=== PATIENT | female | born 1990 | race Caucasian/White ===

== ENCOUNTER 2021-11-06 07:29 | Inpatient (IN) | payer SELFPAY ==
[2021-11-06] MEDS ORDERED: LACTATED RINGERS 1,000 ML IV ONE (11:59)
[2021-11-06] MEDS ORDERED: fentaNYL 100 MCG/2 ML INJ IV PRN (12:18)
[2021-11-06] MEDS ORDERED: TERBUTALINE 1 MG/1 ML INJ SUB-Q PRN (12:18)
[2021-11-06] MEDS ORDERED: miSOPROStol 200 MCG TAB PR PRN (12:18)
[2021-11-06] MEDS ORDERED: MINERAL OIL 30 ML ORAL LIQD PO PRN (12:18)
[2021-11-06] MEDS ORDERED: LOPERAMIDE 2 MG CAP PO PRN (12:18)
[2021-11-06] MEDS ORDERED: ACETAMINOPHEN 325 MG TAB PO PRN (12:18)
[2021-11-06] MEDS ORDERED: CARBOPROST TROMETHAMINE 250 MCG/1 ML INJ IM PRN (12:18)
[2021-11-06] MEDS ORDERED: METHYLERGONOVINE MALEATE 0.2 MG/ML VIAL IM PRN (12:18)
[2021-11-06] MEDS ORDERED: BUTORPHANOL 2 MG/1 ML INJ IV PRN ×2 (12:18)
[2021-11-06] MEDS ORDERED: OXYTOCIN 10 UNIT/1 ML INJ IM PRN (12:18)
[2021-11-06] MEDS ORDERED: ePHEDrine SULFATE 50 MG/1 ML INJ IV PRN ×2 (12:18→14:00)
[2021-11-06 12:33] LABS: Hematocrit 37.2 % (30.3-42.9); Mean Corpuscular HGB Conc 32 % (30-34); Mean Corpuscular Volume 88 fl (79-97); Platelet Count 135 K/mm3 (140-440); Red Blood Count 4.25 M/mm3 (3.65-5.03); Red Cell Distribution Width 18.3 % (13.2-15.2)
--- NOTE | 2021-11-06 12:35 | History and Physical Report ---
History of Present Illness Date of examination: 11/06/21 Date of admission: 11/06/2021 Chief complaint: Contractions History of present illness: 30 yo female presented to [facility] @40 4/7weeks with c/o contractions. Denies VB or LOF and admits to + movement. Initiated care at [facility] at 7 6/7 weeks. +UTI early , MELIZA neg. Med/surg/social hx unremarkable. . Family hx of DM(grandmother). GBS negative. Found to be in labor and admit to L&D. Past History Past Medical History: no pertinent history Past Surgical History: no surgical history Family/Genetic History: diabetes (grandmother) - Obstetrical History Expected Date of Delivery: 11/02/21 Actual Gestation: 40 Week(s) 4 Day(s) : 4 Para: 3 Hx # Term Pregnancies: 3 Number of Living Children: 3 Medications and Allergies Allergies Allergy/AdvReac Type Severity Reaction Status Date / Time No Known Allergies Allergy Verified 11/06/21 12:14 Home Medications Medication Instructions Recorded Confirmed Last Taken Type 21/Iron Fu/Folic Acid 1 each PO DAILY 04/19/14 08/18/16 08/16/16 History [ Complete Caplet] Active Meds: Active Medications Lactated Ringer's (Lactated Ringers) 1,000 mls @ 999 mls/hr IV BOLUS ONE Stop: 11/06/21 12:59 Last Admin: 11/06/21 12:15 Dose: 999 mls/hr Review of Systems All systems: negative Gastrointestinal: other (contractions) - Vital Signs Vital signs: Vital Signs Pulse Pulse Ox 89 98 11/06/21 07:53 11/06/21 07:53 Temp Pulse Resp BP Pulse Ox 99.2 F 98 H 16 134/91 97 11/06/21 11:52 11/06/21 12:23 11/06/21 11:52 11/06/21 11:52 11/06/21 12:23 - Physical Exam Breasts: Positive: normal Abdomen: Positive: normal appearance, soft Genitourinary (Female): Positive: normal external genitalia, normal perenium Vulva: both: normal Vagina: Positive: normal moisture Uterus: Positive: enlarged, other (gravid) Anus/Rectum: Positive: normal perianal skin Extremities: Positive: normal - Obstetrical FHR: category 1 Uterine Contraction Monitor Mode: External Cervical Dilatation: 5.5 (per nurse) Cervical Effacement Percentage: 80 station: -2 Uterine Contraction Frequency (min): 2-5 Uterine Contraction Duration: 80-100 Uterine Contraction Pattern: Regular Uterine Tone Measurement Phase: Resting Uterine Contraction Intensity: Moderate Results All other labs normal. Assessment and Plan A: IUP @ 40.4 weeks GBS neg P: Admit to L&D Continuous monitoring Pain med/ Epidural PRN Anticipate
[2021-11-06] MEDS ORDERED: OXYTOCIN DRIP 30 UNITS/500 ML BAG IV SCH (13:00)
--- NOTE | 2021-11-06 13:26 | Anesthesia Consultation ---
Anesthesia Consult and Med Hx Date of service: 11/06/21 - Airway Anesthetic Teeth Evaluation: Good ROM Head & Neck: Adequate Mental/Hyoid Distance: Adequate Mallampati Class: Class III Intubation Access Assessment: Probably Good - Pulmonary Exam CTA: Yes - Cardiac Exam Cardiac Exam: RRR - Pre-Operative Health Status ASA Pre-Surgery Classification: ASA2 Proposed Anesthetic Plan: Epidural - Pulmonary Hx Smoking: No Hx Asthma: No COPD: No Hx Pneumonia: No Hx Sleep Apnea: No - Cardiovascular System Hx Hypertension: No Hx Heart Attack/AMI: No Hx Angina: No - Central Nervous System Hx Seizures: No Hx Psychiatric Problems: No - Gastrointestinal Hx Gastroesophageal Reflux Disease: No - Endocrine Hx Renal Disease: No Hx End Stage Renal Disease: No Hx Liver Disease: No Hx Insulin Dependent Diabetes: No Hx Non-Insulin Dependent Diabetes: No Hx Hypothyroidism: No Hx Hyperthyroidism: No - Hematic Hx Anemia: No Hx Sickle Cell Disease: No - Other Systems Hx Alcohol Use: No Hx Obesity: Yes
--- NOTE | 2021-11-06 13:27 | Progress Note ---
Labor Epidural - Labor Epidural Start Time: 13:09 Stop Time: 13:22 Performed by:: MARY GRADY ([facility]) Procedure: Patient is requesting epidural for labor and pain. H&P, labs were reviewed. Patient IDed, H&P reviewed, all questions and concerns were answered, and consent was signed. Timeout was performed at bedside. Patient in sitting position. Sterile prep and drape was performed. 3ml of 1% lidocaine skin wheal at L[3]- L [4]. 17-gauge Tuohy epidural needle was advanced to loss of resistance with air technique 7cm. Negative CSF negative blood. Epidural catheter advanced to [12] centimeters. [negative] Aspiration [negative] test dose. Sterile dressing applied. Patient tolerated procedure.
[2021-11-06] MEDS ORDERED: fentaNYL-BUPIV 2 MCG/ML-0.125% 200 MCG/100 ML BAG EPIDURAL ONE (13:32)
[2021-11-06] MEDS ORDERED: diphenhydrAMINE 50 MG/ML VIAL IV PRN (14:00)
[2021-11-06] MEDS ORDERED: ONDANSETRON 4 MG/2 ML INJ IV PRN ×2 (14:00→16:19)
[2021-11-06] MEDS ORDERED: NALOXONE 2 MG/2 ML INJ IV PRN (14:00)
[2021-11-06] MEDS ORDERED: LACTATED RINGERS 250 ML IV SOLN IV ONE (14:00)
[2021-11-06] MEDS ORDERED: NalbUPHINE 10 MG/1 ML INJ IV PRN (14:00)
[2021-11-06] MEDS ORDERED: fentaNYL-BUPIV 2 MCG/ML-0.125% 200 MCG/100 ML BAG EPIDURAL SCH (14:00)
[2021-11-06] MEDS ORDERED: LACTATED RINGERS 1,000 ML ONE (15:21)
[2021-11-06] MEDS: OXYTOCIN DRIP 30 UNITS/500 ML BAG IV SCH ×2 (15:58→17:43)
[2021-11-06] MEDS ORDERED: oxyCODONE /ACETAMINOPHEN 5-325MG TAB PO PRN (16:19)
[2021-11-06] MEDS ORDERED: PROMETHAZINE 25 MG RECT SUPP PR PRN (16:19)
[2021-11-06] MEDS ORDERED: MAGNESIUM HYDROXIDE (MOM) ORAL LIQD UDC PO PRN (16:19)
[2021-11-06] MEDS ORDERED: WITCH HAZEL/ GLYCERIN PAD TP PRN (16:19)
[2021-11-06] MEDS ORDERED: PROMETHAZINE 25 MG TAB PO PRN (16:19)
[2021-11-06] MEDS ORDERED: LANOLIN/ZINC/DIMETHICONE (LANSINOH) 7 GM TP PRN (16:19)
--- NOTE | 2021-11-06 16:32 | Procedure Note ---
OB Delivery Note - Delivery Date of Delivery: 11/06/21 Surgeon: MITZY DE LOS SANTOS Estimated blood loss: 200cc - Vaginal Delivery presentation: vertex Delivery position: OA Intrapartum events: none Delivery augmentation: pitocin Delivery monitor: external FHT, external uterine Route of delivery: Delivery placenta: spontaneous Delivery cord: nuchal cord, 3 umbilical vessels Delivery laceration: none Anesthesia: epidural Delivery comments: of viable female . APGARS 9/9 Delivered over an intact perineum, shoulders delivered spontaneously, loose nuchal cord x1, reduced at perineum. baby direct to maternal ABD for skin to skin. Delayed cord clamping until cessation of cord pulsation, clamped and cut buy partner. Placenta delivered spontaneously with 3 cv and inact. FF @ U-2 with fundal massage and Pitocin IV. Perineum, cervix, and vagina inspected. No lacerations noted. Tolerated delivery well with epidural. No complications noted. Mom and baby stable. EBL 200. RUBI Flores, JUNIEM - Infant A at 1 minute: 9 (FW 3700 Gm) at 5 minutes: 9 Infant Gender: Female (FW 3700 Gm)
[2021-11-06] MEDS: IBUPROFEN 600 MG TAB PO SCH (17:29)
[2021-11-07] MEDS: IBUPROFEN 600 MG TAB PO SCH ×3 (05:08→11:17)
[2021-11-07 05:56] LABS: Hematocrit 33.5 % (30.3-42.9); Hemoglobin 10.8 gm/dl (10.1-14.3)
--- NOTE | 2021-11-07 09:25 | Progress Note ---
Assessment and Plan A: PP Day #1 Stable P: Follow Routine Orders D/C home today per patient request RTO in 6 Weeks Subjective - Subjective Date of service: 11/07/21 Patient reports: appetite normal, voiding normally, pain well controlled, flat us, ambulating normally : doing well, bottle feeding (and ) Objective - Vital Signs Latest vital signs: Vital Signs Temp Pulse Resp BP BP Pulse Ox Pulse Ox 11/07/21 06:08 18 11/07/21 06:00 18 11/07/21 05:08 18 11/07/21 00:35 98.0 F 83 20 95/68 94 11/06/21 23:49 20 11/06/21 22:49 18 11/06/21 21:06 97.8 F 73 18 93/49 96 11/06/21 20:30 100 11/06/21 18:41 99 F 79 18 108/70 96 11/06/21 17:42 99.1 F 90 18 108/57 108/57 98 11/06/21 17:38 97 H 96 11/06/21 17:37 94 H 113/58 11/06/21 17:33 85 96 11/06/21 17:28 82 96 11/06/21 17:23 87 109/67 96 11/06/21 17:18 95 H 96 11/06/21 17:13 102 H 97 11/06/21 17:08 76 97/50 95 11/06/21 17:03 78 96 11/06/21 16:58 80 97 11/06/21 16:55 85 94 11/06/21 16:53 91 H 111/65 97 11/06/21 16:48 93 H 96 11/06/21 16:43 81 96 11/06/21 16:38 93 H 104/72 95 11/06/21 16:33 89 96 11/06/21 16:28 87 96 11/06/21 16:23 92 H 95 11/06/21 16:22 91 H 107/78 11/06/21 16:18 92 H 97 11/06/21 16:13 98.2 F 103 H 97 11/06/21 16:11 104 H 122/80 11/06/21 16:08 116 H 124/67 96 11/06/21 16:03 93 H 97 11/06/21 15:58 112 H 97 11/06/21 15:53 144 H 97 11/06/21 15:48 90 96 11/06/21 15:43 83 98 11/06/21 15:38 94 H 95 11/06/21 15:37 83 114/62 11/06/21 15:33 80 96 11/06/21 15:32 84 94 11/06/21 15:28 86 94 11/06/21 15:25 85 94 11/06/21 15:23 90 103/59 97 11/06/21 15:18 80 97 11/06/21 15:13 75 96 11/06/21 15:08 71 104/57 96 11/06/21 15:03 70 96 11/06/21 14:58 73 96 11/06/21 14:53 77 96 11/06/21 14:52 78 98/53 11/06/21 14:48 78 96 11/06/21 14:43 82 96 11/06/21 14:39 83 114/59 11/06/21 14:38 81 96 11/06/21 14:33 75 96 11/06/21 14:28 88 95 11/06/21 14:23 78 96 11/06/21 14:22 93 H 95/58 11/06/21 14:18 80 95 11/06/21 14:13 69 95 11/06/21 14:10 75 94 11/06/21 14:08 77 96 11/06/21 14:07 80 104/59 11/06/21 14:04 91 H 94 11/06/21 14:03 78 95 11/06/21 13:59 74 94 11/06/21 13:58 78 95 11/06/21 13:54 75 104/55 94 11/06/21 13:53 75 95 11/06/21 13:51 98.7 F 87 16 129/88 97 11/06/21 13:48 81 96 11/06/21 13:43 83 97 11/06/21 13:38 84 96 11/06/21 13:35 102 H 129/88 11/06/21 13:33 84 98 11/06/21 13:32 82 116/72 11/06/21 13:29 90 122/82 11/06/21 13:28 91 H 97 11/06/21 13:27 117 H 94 0201/22 13:26 94 H 121/70 11/06/21 13:23 98 H 135/98 97 11/06/21 13:20 93 H 137/76 11/06/21 13:18 95 H 97 11/06/21 13:17 116 H 157/99 11/06/21 13:14 96 H 130/82 11/06/21 13:13 95 H 97 11/06/21 13:11 100 H 139/94 11/06/21 13:08 96 H 98 11/06/21 13:03 97 H 127/81 98 11/06/21 12:58 106 H 97 11/06/21 12:53 85 96 11/06/21 12:48 93 H 132/85 98 11/06/21 12:43 82 96 11/06/21 12:38 90 98 11/06/21 12:33 103 H 98 11/06/21 12:28 92 H 97 11/06/21 12:23 98 H 97 11/06/21 12:18 96 H 98 11/06/21 12:13 108 H 97 11/06/21 12:08 87 98 11/06/21 12:03 101 H 97 11/06/21 11:58 84 98 11/06/21 11:53 97 H 98 11/06/21 11:52 99.2 F 97 H 16 134/91 98 11/06/21 11:51 92 H 134/91 11/06/21 11:37 97 H 94 11/06/21 11:36 83 96 11/06/21 11:31 82 94 11/06/21 11:26 102 H 95 11/06/21 11:25 79 94 11/06/21 11:21 93 H 97 11/06/21 11:16 88 97 11/06/21 11:11 91 H 96 11/06/21 11:06 87 96 11/06/21 11:03 86 94 11/06/21 11:01 89 97 11/06/21 10:56 80 96 11/06/21 10:55 90 94 11/06/21 10:51 79 96 11/06/21 10:46 86 96 11/06/21 10:41 89 96 11/06/21 10:36 88 98 11/06/21 10:31 80 96 Intake and Output 11/06/21 11/07/21 11/07/21 22:59 06:59 14:59 Intake Total 648.75 720 Output Total 700 1400 Balance -51.25 -680 Intake: IV 288.75 PITOCin/NS 30 UNIT/500ML 288.75 30 units In 500 ml @ 40 mls/hr IV TITR ELDON Rx#: [id number] Oral 240 360 Intake, Free Water 120 360 Output: Urine 700 1400 Indwelling Catheter 300 Uretheral (Cole) 300 Void 100 1400 Other: Total, Intake Amount 240 360 Total, Output Amount 100 500 # Voids Void 1 Estimated Blood Loss 200 - Exam Breasts: Present: normal Cardiovascular: Present: Regular rate Lungs: Present: Clear to auscultation, Normal air movement Abdomen: Present: normal appearance, soft, normal bowel sounds Uterus: Present: normal, firm, fundal height below umbilicus Extremities: Present: normal - Labs Labs: Abnormal lab results 11/06/21 Range/Units 11:55 RDW 18.3 H (13.2-15.2) % Plt Count 135 L (140-440) K/mm3
--- NOTE | 2021-11-07 09:26 | Discharge Summary ---
Providers - Providers Date of Admission: 11/06/21 12:18 Date of discharge: 11/07/21 Attending physician: STEVE ALEMAN MD Primary care physician: STEVE ALEMAN MD Hospitalization Reason for admission: active labor Delivery: Episiotomy: none Laceration: none Other procedures: none complications: none Discharge diagnosis: IUP at term delivered baby: female Condition at discharge: Good Disposition: 01 HOME / SELF CARE / HOMELESS Plan - Provider Discharge Summary Activity: routine, no sex for 6 weeks, no heavy lifting 4 weeks, no strenuous exercise Diet: routine Instructions: routine Additional instructions: [] Smoking cessation referral if applicable(refer to patient education folder for contact #) [] Refer to [facility]'s [facility] Booklet Call your doctor immediately for: * Fever > 100.5 * Heavy vaginal bleeding ( >1 pad per hour) * Severe persistent headache * Shortness of breath * Reddened, hot, painful area to leg or breast * Drainage or odor from incision. * Keep incision clean and dry at all times and follow doctor's instructions regarding bathing/showering - Follow up plan Follow up: STEVE ALEMAN MD [Primary Care Provider] - 6 Weeks
--- NOTE | 2021-11-07 10:11 | Post Anesthesia Evaluation ---
- Post Anesthesia Evaluation Patient Participated: Yes Airway Patent: Yes Stable Respiratory Function: Yes Nausea/Vomiting: No Temp > 96.8F: Yes Pain Manageable: Yes Adequeate Hydration: Yes Anesthesia Complications: No Block Receding Appropriately: Yes Patient on Ventilator: No
[2021-11-07 17:57] VITALS: BP 108/67
== END 2021-11-07 18:12 | disposition home or self-care (01) | DRG 807 ==
LOC: TRG 07:29 → APU 07:30 → LD 11:48 → TRG 12:18 → LD 12:18 → OB 18:11
PROVIDERS: ADMIT Obstetrics & Gynecology; ATTEND Obstetrics & Gynecology
PROC: 10E0XZZ Delivery of Products of Conception, External Approach (ICD-10-PCS; principal; 2021-11-06)
PROC: 3E0R3BZ Introduction of Anesthetic Agent into Spinal Canal, Percutaneous Approach (ICD-10-PCS; 2021-11-06)
PROC: 00HU33Z Insertion of Infusion Device into Spinal Canal, Percutaneous Approach (ICD-10-PCS; 2021-11-06)
DX: O69.81X0 Labor and delivery complicated by cord around neck, without compression, not applicable or unspecified (principal); Z37.0 Single live birth; Z3A.40 40 weeks gestation of pregnancy; O99.214 Obesity complicating childbirth; Z20.822 Contact with and (suspected) exposure to COVID-19
CPT/HCPCS: 36415; 59025; 84112; 85014; 85018; 85027; 86592; 86850; 86900; 86901; G0378; J3490; J2590; J7120; U0003